=== PATIENT | female | born 1965 | race Caucasian/White ===

== ENCOUNTER 2023-08-09 14:59 | Outpatient (CLI) | payer OTHER | END 2023-08-09 15:00 | disposition critical access hospital (66) | LOC: EMS 14:59 | DX: R11.10 Vomiting, unspecified (principal); R19.5 Other fecal abnormalities; R53.1 Weakness | CPT/HCPCS: A0425; A0429 ==

== ENCOUNTER 2023-08-09 15:20 | Emergency (ER) | payer OTHER ==
--- NOTE | 2023-08-09 15:27 | ED Physician Documentation ---
History of Present Illness - Stated complaint Stated Complaint: VOMITING BLOOD - History obtained from History obtained from: Patient, EMS - Additonal information Additional information: 57-year-old woman who lives in [place] and is up here visiting, potentially preparing to move here. She has a history of liver disease and she does not know why. She says she was not really a drinker per se. As far she knows she is does not have varices and is never had GI bleeding. She does have significant ascites and for reasons unclear, "they did not refill my prescription, "she is not taking Lasix. The last 3 days she has had dark and ta rry stools and had some bloody emesis today. PD PAST MEDICAL HISTORY - Allergies Allergies/Adverse Reactions: Allergies Allergy/AdvReac Type Severity Reaction Status Date / Time No Known Drug Allergies Allergy Verified 08/09/23 15:47 PD ED PE NORMAL - Vitals Vital signs reviewed: Yes - General General: Alert and oriented X 3, Other (She appears ill with mild encephalopathy with delayed question answering.) - HEENT HEENT: PERRL, EOMI - Neck Neck: Supple, no meningeal sign, No bony TTP - Cardiac Cardiac: RRR, No murmur - Respiratory Respiratory: No respiratory distress - Abdomen Abdomen: Other (Profound ascites with abraded and fluid-filled umbilical hernia) - Back Back: No CVA TTP, No spinal TTP - Extremities Extremities: Other (weepy edematous legs with mult sores) - Neuro Neuro: Alert and oriented X 3 Eye Opening: To Voice Motor: Obeys Commands Verbal: Oriented GCS Score: 14 Results - Vitals Vitals: Vital Signs - 24 hr 08/09/23 08/09/23 08/09/23 15:32 15:51 16:00 Temperature Heart Rate 103 H 99 90 Respiratory 26 H 25 H 22 Rate Blood Pressure 90/55 L 79/58 L 52/32 L Blood Pressure [Left Brachial artery] O2 Saturation 100 100 100 08/09/23 08/09/23 08/09/23 16:02 16:06 16:09 Temperature Heart Rate 90 92 104 H Respiratory 20 16 Rate Blood Pressure 113/102 H 90/64 92/55 L Blood Pressure [Left Brachial artery] O2 Saturation 99 100 100 08/09/23 08/09/23 08/09/23 16:20 17:02 17:07 Temperature 36.5 C Heart Rate 96 94 Respiratory 21 16 16 Rate Blood Pressure 158/75 H 125/66 Blood Pressure 87/60 L [Left Brachial artery] O2 Saturation 94 100 95 08/09/23 17:44 Temperature Heart Rate 95 Respiratory 20 Rate Blood Pressure Blood Pressure [Left Brachial artery] O2 Saturation Oxygen O2 Source Mechanical ventilator - Labs Labs: Microbiology 08/09/23 15:35 Occult Blood - Final Stool Laboratory Tests 08/09/23 08/09/23 08/09/23 15:45 15:45 15:45 WBC 22.9 H RBC 2.43 L Hgb 6.2 L* Hct 22.0 L MCV 90.5 MCH 25.5 L MCHC 28.2 L RDW 20.0 H Plt Count 209 MPV 11.0 H Neut # (Auto) Not Reportable Lymph # (Auto) Not Reportable Ellsworth # (Auto) Not Reportable Eos # (Auto) Not Reportable Baso # (Auto) Not Reportable Absolute Nucleated RBC Not Reportable Total Counted 100 Band Neuts % (Manual) 4 Abnorm Lymph % (Manual) 0 Metamyelocytes % 2 H Nucleated RBC % Not Reportable Neutrophils # (Manual) 21.3 H Lymphocytes # (Manual) 0.9 L Monocytes # (Manual) 0.2 Eosinophils # (Manual) 0.0 Basophils # (Manual) 0.0 Nucleated RBCs 4 Differential Comment MANUAL DIFFERENTIAL WBC Morphology 1+ HYPERSEG NEUT Platelet Estimate NORMAL (130-450,000) Platelet Morphology NORMAL APPEARANCE RBC Morph Micro Appear 1+ HYPOCHROMASIA PT INR APTT Bld Gas Analysis Time Sample Site ABG pH ABG pCO2 ABG pO2 ABG HCO3 ABG Total CO2 ABG O2 Saturation ABG Base Excess Jevon Test Respiration Rate O2 Delivery Device Vent Mode FiO2 Tidal Volume PEEP Pressure Support Vent Sodium 139 Potassium 6.4 H* Chloride 110 Carbon Dioxide 14 L Anion Gap 15.0 H BUN 90 H* Creatinine 3.4 H Estimated GFR (MDRD) 14 L Glucose 202 H POC Whole Bld Glucose Lactic Acid Calcium 8.6 Phosphorus Magnesium 1.9 Total Bilirubin 0.7 AST 170 H ALT 66 H Alkaline Phosphatase 167 H Ammonia Troponin I High Sens Total Protein 5.9 L Albumin 2.2 L Globulin 3.7 Albumin/Globulin Ratio 0.6 L Ethyl Alcohol < 10.0 Blood Type Blood Type Recheck A POSITIVE Antibody Screen Crossmatch IS Only 08/09/23 08/09/2308/09/24 15:45 16:21 16:21 WBC RBC Hgb Hct MCV MCH MCHC RDW Plt Count MPV Neut # (Auto) Lymph # (Auto) Ellsworth # (Auto) Eos # (Auto) Baso # (Auto) Absolute Nucleated RBC Total Counted Band Neuts % (Manual) Abnorm Lymph % (Manual) Metamyelocytes % Nucleated RBC % Neutrophils # (Manual) Lymphocytes # (Manual) Monocytes # (Manual) Eosinophils # (Manual) Basophils # (Manual) Nucleated RBCs Differential Comment WBC Morphology Platelet Estimate Platelet Morphology RBC Morph Micro Appear PT 17.3 H INR 1.6 H APTT 32.9 Bld Gas Analysis Time Sample Site ABG pH ABG pCO2 ABG pO2 ABG HCO3 ABG Total CO2 ABG O2 Saturation ABG Base Excess Jevon Test Respiration Rate O2 Delivery Device Vent Mode FiO2 Tidal Volume PEEP Pressure Support Vent Sodium Potassium Chloride Carbon Dioxide Anion Gap BUN Creatinine Estimated GFR (MDRD) Glucose POC Whole Bld Glucose 215 H Lactic Acid Calcium Phosphorus Magnesium Total Bilirubin AST ALT Alkaline Phosphatase Ammonia 155.2 H* Troponin I High Sens Total Protein Albumin Globulin Albumin/Globulin Ratio Ethyl Alcohol Blood Type Blood Type Recheck Antibody Screen Crossmatch IS Only 08/09/23 08/09/23 08/09/23 16:21 16:21 17:16 WBC RBC Hgb Hct MCV MCH MCHC RDW Plt Count MPV Neut # (Auto) Lymph # (Auto) Ellsworth # (Auto) Eos # (Auto) Baso # (Auto) Absolute Nucleated RBC Total Counted Band Neuts % (Manual) Abnorm Lymph % (Manual) Metamyelocytes % Nucleated RBC % Neutrophils # (Manual) Lymphocytes # (Manual) Monocytes # (Manual) Eosinophils # (Manual) Basophils # (Manual) Nucleated RBCs Differential Comment WBC Morphology Platelet Estimate Platelet Morphology RBC Morph Micro Appear PT INR APTT Bld Gas Analysis Time Sample Site ABG pH ABG pCO2 ABG pO2 ABG HCO3 ABG Total CO2 ABG O2 Saturation ABG Base Excess Jevon Test Respiration Rate O2 Delivery Device Vent Mode FiO2 Tidal Volume PEEP Pressure Support Vent Sodium Potassium Chloride Carbon Dioxide Anion Gap BUN Creatinine Estimated GFR (MDRD) Glucose POC Whole Bld Glucose 199 H Lactic Acid Calcium Phosphorus Magnesium Total Bilirubin AST ALT Alkaline Phosphatase Ammonia Troponin I High Sens 490.2 H* Total Protein Albumin Globulin Albumin/Globulin Ratio Ethyl Alcohol Blood Type A POSITIVE Blood Type Recheck Antibody Screen NEGATIVE Crossmatch IS Only See Detail 08/09/23 08/09/23 08/09/23 17:20 17:49 17:49 WBC 15.2 H RBC 2.70 L Hgb 7.1 L Hct 24.7 L MCV 91.5 MCH 26.3 L MCHC 28.7 L RDW 17.6 H Plt Count 153 MPV 10.8 Neut # (Auto) Lymph # (Auto) Ellsworth # (Auto) Eos # (Auto) Baso # (Auto) Absolute Nucleated RBC Total Counted Band Neuts % (Manual) Abnorm Lymph % (Manual) Metamyelocytes % Nucleated RBC % Neutrophils # (Manual) Lymphocytes # (Manual) Monocytes # (Manual) Eosinophils # (Manual) Basophils # (Manual) Nucleated RBCs Differential Comment WBC Morphology Platelet Estimate Platelet Morphology RBC Morph Micro Appear PT INR APTT Bld Gas Analysis Time 1720 Sample Site LEFT RADIAL ABG pH 7.07 L* ABG pCO2 46 H ABG pO2 56 L ABG HCO3 13.1 L ABG Total CO2 14.6 L ABG O2 Saturation 79 L* ABG Base Excess -16.1 L Jevon Test POSITIVE Respiration Rate 16 O2 Delivery Device VENTILATOR Vent Mode SIMV FiO2 80.00 Tidal Volume 450 PEEP 5 Pressure Support Vent 12 Sodium Potassium Chloride Carbon Dioxide Anion Gap BUN Creatinine Estimated GFR (MDRD) Glucose POC Whole Bld Glucose Lactic Acid 7.8 H* Calcium Phosphorus Magnesium Total Bilirubin AST ALT Alkaline Phosphatase Ammonia Troponin I High Sens Total Protein Albumin Globulin Albumin/Globulin Ratio Ethyl Alcohol Blood Type Blood Type Recheck Antibody Screen Crossmatch IS Only 08/09/23 17:49 WBC RBC Hgb Hct MCV MCH MCHC RDW Plt Count MPV Neut # (Auto) Lymph # (Auto) Ellsworth # (Auto) Eos # (Auto) Baso # (Auto) Absolute Nucleated RBC Total Counted Band Neuts % (Manual) Abnorm Lymph % (Manual) Metamyelocytes % Nucleated RBC % Neutrophils # (Manual) Lymphocytes # (Manual) Monocytes # (Manual) Eosinophils # (Manual) Basophils # (Manual) Nucleated RBCs Differential Comment WBC Morphology Platelet Estimate Platelet Morphology RBC Morph Micro Appear PT INR APTT Bld Gas Analysis Time Sample Site ABG pH ABG pCO2 ABG pO2 ABG HCO3 ABG Total CO2 ABG O2 Saturation ABG Base Excess Jevon Test Respiration Rate O2 Delivery Device Vent Mode FiO2 Tidal Volume PEEP Pressure Support Vent Sodium 137 Potassium 5.6 H Chloride 111 Carbon Dioxide 15 L Anion Gap 11.0 BUN 92 H* Creatinine 3.3 H Estimated GFR (MDRD) 14 L Glucose 278 H POC Whole Bld Glucose Lactic Acid Calcium 8.9 Phosphorus 7.0 H Magnesium 1.7 Total Bilirubin AST ALT Alkaline Phosphatase Ammonia Troponin I High Sens Total Protein Albumin Globulin Albumin/Globulin Ratio Ethyl Alcohol Blood Type Blood Type Recheck Antibody Screen Crossmatch IS Only Procedures - General procedure General procedure: Arterial Line: Consent could not be obtained. The right wrist was prepped and draped in sterile fashion and using real-time sterile ultrasound guidance the right radial artery was accessed using a Seldinger wire a line with pulsatile return. Sutured into place. - Intubation - Major Provider: Emergency physician Medications: Ketamine (250mg IVP), Rocuronium (20mg IVP) Blade: Glidescope Tube: Size-enter number (7.5), Cuffed Route: Oral Confirmation: Direct visualization Complications: Other (She actively had melena, up through her esophagus during intubation which was suctioned out using a Yankauer. She did not seem to aspirate specifically.) - Central Line - Major Central Line Preparation: Unable to obtain consent, Time out completed, Ultrasound used, Sterile prep and drape Central line location: Right IJ Central line type: Triple lumen Central line aftercare: Secured, Placement confirmed, No pneumothorax, Bundle checklist complete, Pt tolerated well PD Medical Decision Making - ED course ED course: 57-year-old woman arrives critically ill and modestly encephalopathic with an apparent upper GI bleed. She has known cirrhosis and subsequently was able to find from the that she has a history of heart failure (he is does not know details or her EF). She does not know if she has varices. She was queried about CODE STATUS and she states she is full code and "wants everything done." While we were getting her settled she dipped down on her oxygen saturations and became agitated. It was clear that she would need intubation and she had to peripheral IVs and she was intubated by me and subsequently a right IJ central line was placed. During intubation it was clear that she had melena coming up from her esophagus which was suctioned out. She dropped her pressure more down to the 50/30 range and Levophed was begun as the central line was being placed. I called our surgeon, Dr. Brown and felt that she was too sick to be scoped at this facility but did go ahead and place a Hemant tube. I also placed a right radial art line and we activated the massive transfusion protocol. Subsequently initial results showed hemoglobin of 6, white count of 22, coags were not too bad, she has prerenal azotemia with hyperkalemia, very elevated ammonia and troponin and no alcohol on board. I also ordered Rocephin, octreotide bolus and drip, Protonix bolus and drip, and for treatment of the hyperkalemia, D50, insulin, albuterol, and calcium. I was hesitant to give her too much crystalloid given the history of heart failure and she certainly does seem fluid overloaded clinically. The health community relations liaison called around looking for a bed at a tertiary facility, [facility] could not take her due to volume issues and subsequently was accepted at approximately 4:[address] Masters, skiver heel tap at [facility]. arrived at the bedside, he is available at [phone]. Grave prognosis was portrayed and he is understanding. ABG 7.07/46/56. I suspect this is venous, the RT did not draw it off the A- line. That said even if venous this represents a metabolic acidosis and we can help correct and we will increase her respiratory rate from 16 up to 20. Rpt labs show improved Hgb p 2 unit PRBCs and 1 unit FFP and improved K. Transfer via [facility] to [facility] in improved but still very critical cond ition. - Critical Care Time(min): 95 Time Includes: Direct patient care, Review records, Reassess patient, Document care, Coordinate care, Medical consult, Family consult for tx dec Data interpretation: Labs, Pulse ox Procedures included in critical care time: Peripheral IV Procedures excluded from critical care time: Central IV, Arterial cannulation, Intubation, EKG Departure - Departure Disposition: 02 Transfer Acute Care Hosp Clinical Impression: Upper GI bleed, Hyperkalemia, Shock Cirrhosis Qualifiers: Hepatic cirrhosis type: unspecified hepatic cirrhosis Ascites presence: with ascites Qualified Code(s): K74.60 - Unspecified cirrhosis of liver; R18.8 - O ther ascites Renal failure Qualifiers: Renal failure chronicity: acute Acute renal failure type: unspecified Qualified Code(s): N17.9 - Acute kidney failure, unspecified Congestive heart failure Qualifiers: Heart failure type: unspecified Heart failure chronicity: unspecified Qualified Code(s): I50.9 - Heart failure, unspecified Respiratory failure Qualifiers: Chronicity: acute Respiratory failure complication: hypoxia Qualified Code(s): J96.01 - Acute respiratory failure with hypoxia Condition: Critical Forms: PCP List Discharge Date/Time: 08/09/23 18:30
[2023-08-09 15:50] LABS: BASOPHILS % (AUTO) 0.4 %; EOSINOPHILS % (AUTO) 0.1 %; LYMPHOCYTES % (AUTO) 7.1 %; MEAN CORPUSCULAR HEMOGLOBIN 25.5 pg (27.0-31.0); MEAN CORPUSCULAR HGB CONC 28.2 g/dL (32.0-36.0); MEAN CORPUSCULAR VOLUME 90.5 fL (81.0-99.0); MONOCYTES % (AUTO) 4.5 %; NEUTROPHILS % (AUTO) 81.6 %; PLT - PLATELET COUNT 209 10^3/uL (130-450); RED BLOOD COUNT 2.43 10^6/uL (4.20-5.40); WHITE BLOOD COUNT 22.9 x10^3/uL (4.8-10.8)
[2023-08-09] MEDS: KETAMINE 500 MG/10 ML VIAL IVP STA (15:51)
[2023-08-09] MEDS: ROCURONIUM 50 MG/5 ML VIAL IVP STA (15:53)
[2023-08-09 15:55] LABS: HGB - HEMOGLOBIN 6.2 g/dL (12.0-16.0)
[2023-08-09 15:57] LABS: ABNORMAL LYMPHS % (MANUAL) 0 %
[2023-08-09] MEDS ORDERED: NOREPINEPHRINE/0.9 % NS 8 MG/250 ML BAG IV ONE (15:58)
[2023-08-09 16:02] LABS: ETOH - ETHANOL < 10.0 mg/dL; MAGNESIUM 1.9 mg/dL (1.7-2.3)
[2023-08-09] MEDS: NOREPINEPHRINE/0.9 % NS 8 MG/250 ML BAG IV SCH (16:02)
[2023-08-09 16:06] LABS: ALBUMIN 2.2 g/dL (3.2-5.5); ALBUMIN/GLOBULIN RATIO 0.6 (1.0-2.2); ALKALINE PHOSPHATASE 167 IU/L (42-121); ALT ALANINE AMINOTRANSFERASE 66 IU/L (10-60); AST ASPARTATE AMINOTRANSFERASE 170 IU/L (10-42); BILIRUBIN,TOTAL 0.7 mg/dL (0.2-1.0); BUN - BLOOD UREA NITROGEN 90 mg/dL (6-20); CALCIUM 8.6 mg/dL (8.5-10.3); CARBON DIOXIDE - CO2 14 mmol/L (21-32); CHLORIDE 110 mmol/L (101-111); CREATININE 3.4 mg/dL (0.6-1.3); GFR - MDRD 14 (>89); GLUCOSE 202 mg/dL (74-104); POTASSIUM 6.4 mmol/L (3.5-4.5); SODIUM 139 mmol/L (135-145); TOTAL PROTEIN 5.9 g/dL (6.4-8.9)
[2023-08-09] MEDS: fentaNYL 2,500 MCG in SODIUM CHLORIDE 0.9% 200 ML IV STA (16:15)
[2023-08-09] MEDS ORDERED: PANTOPRAZOLE 80 MG in SODIUM CHLORIDE 0.9% 100ML 100 ML IV STA (16:17)
[2023-08-09] MEDS ORDERED: OCTREOTIDE 500 MCG in SODIUM CHLORIDE 0.9% 100ML 95 ML IV STA (16:17)
[2023-08-09 16:24] LABS: BAND NEUTROPHILS % (MANUAL) 4 %; LYMPHOCYTES # (MANUAL) 0.9 10^3/uL (1.5-3.5); LYMPHOCYTES % (MANUAL) 4 %; METAMYELOCYTES % (MANUAL) 2 %; MONOCYTES # (MANUAL) 0.2 10^3/uL (0.0-1.0); NEUTROPHILS # (MANUAL) 21.3 10^3/uL (1.5-6.6); NUCLEATED RBC (MANUAL) 4 %
--- NOTE | 2023-08-09 16:29 | XRAY Report ---
PROCEDURE: Chest for Line Placement INDICATIONS: intubation. central line TECHNIQUE: One view of the chest was acquired. COMPARISON: None. FINDINGS: Surgical changes and devices: Endotracheal tube is present approximately 2.3 cm superior to the zo na. Right-sided central venous catheter is present overlying the mid SVC.. Lungs and pleura: No pleural effusions or pneumothorax. Lungs are clear. Prominent elevated right hemidiaphragm. Mediastinum: Mediastinal contours appear normal. Heart size is enlarged. Bones and chest wall: No suspicious bony lesions. Overlying soft tissues appear unremarkable. IMPRESSION: Support lines as above. Reviewed by: Cheryle Suresh MD on 08/09/2023 4:27 PM PST Approved by: Cheryle Suresh MD on 08/09/2023 4:27 PM PST Station ID: [id number]
[2023-08-09 16:30] LABS: DIFFERENTIAL COMMENT MANUAL DIFFERENTIAL; PLATELET ESTIMATE, MANUAL NORMAL (130-450,000) (NORMAL); PLATELET MORPHOLOGY NORMAL APPEARANCE (NORMAL); WBC MORPHOLOGY (MULTIPLE) 1+ HYPERSEG NEUT (NORMAL)
[2023-08-09 16:34] LABS: PARTIAL THROMBOPLASTIN TIME 32.9 secs (24.9-33.3)
[2023-08-09 16:38] LABS: INR 1.6 (0.8-1.2); PT - PROTHROMBIN TIME 17.3 secs (9.9-12.6)
[2023-08-09] MEDS: PANTOPRAZOLE 80 MG in SODIUM CHLORIDE 0.9% 100ML 100 ML IV STA (17:10)
[2023-08-09] MEDS: OCTREOTIDE 500 MCG in SODIUM CHLORIDE 0.9% 100ML 99 ML IV STA (17:10)
--- NOTE | 2023-08-09 17:10 | CONSULTATION NOTE ---
Referring Provider Name of Referring Provider:: Dr. Luiz Currie Consult Date: 08/09/23 Chief Complaint - Chief Complaint Chief Complaint: Profound upper GI bleed with ascites and encephalopathy History of Present Illness - Admitted From Admitted From:: ED - History Obtained From Records Reviewed: Dr. Currie's note History obtained from: Dr. Currie's note Exam Limitations: Pt intubated/sedated - History of Present Illness HPI Comment/Other: Patient traveled up from [facility] here approximately 3 days ago. I did not get a chance to speak with the patient but in speaking with her and in reviewing Dr. Currie's notes the patient and the are unclear as to why she has cirrhosis of the liver. The states that the patient was not a candidate for liver transplant due to her congestive heart failure. The states that the patient has never been a drinker of alcohol. The states that her last for paracenteses going from earliest to latest warrant 9 L, 10 L, 9 L and most recently almost 11 L. In review of the patient's chart the patient has not been on Lasix or lactulose. I was called emergently to help with the treatment of her acute upper GI bleed. When I arrived in the emergency room in room 3 the patient was already intubated and a central line was being placed by Dr. Currie. Her labs returned a hemoglobin and a potassium level in the 6 range. Her ammonia level was 155. History - Past Medical History Cardiovascular: reports: Congestive heart failure Respiratory: reports: Shortness of breath GI: reports: Cirrhosis (Etiology unclear.), Other (Ascites requiring paracentesis) Meds/Allgy - Allergies Allergies/Adverse Reactions: Allergies Allergy/AdvReac Type Severity Reaction Status Date / Time No Known Drug Allergies Allergy Verified 08/09/23 15:47 Review of Systems - Other Findings Other Findings: Patient was intubated and sedated and I was obviously unable to get a review of systems. Exam - Vital Signs Reviewed Vital Signs: Yes Vital Signs: Vital Signs x48h Pulse Resp BP Pulse Ox 08/09/23 16:09 104 H 92/55 L 100 08/09/23 15:32 103 H 26 H 90/55 L 100 - Physical Exam General Appearance: positive: Other (Intubated, sedated.) Respiratory: positive: Other (Coarse breath sounds throughout with patient intubated.) Cardiovascular: positive: Tachycardia Abdomen: positive: Abnml bowel sounds, Other (Profoundly distended with ascites, necrosis of the skin at the umbilical hernia site.) Skin: positive: Other (Numerous ulcerations of the distal extremities, as noted above, necrosis at the umbilical hernia site of the superficial skin. Numerous abrasions of the skin throughout especially of the lower extremities. Thickness of the skin.) Neurologic/Psychiatric: positive: Other (Intubated, sedated.) Conclusion and Plan - Lab Results Microbiology Results 08/09/23 15:35 Stool Occult Blood - Final Laboratory Results 08/09/23 16:21: Troponin I High Sens 490.2 H* 08/09/23 16:21: Blood Type A POSITIVE, Antibody Screen NEGATIVE, Crossmatch IS Only See Detail 08/09/23 16:21: Ammonia 155.2 H* 08/09/23 16:21: PT 17.3 H, INR 1.6 H, APTT 32.9 08/09/23 15:45: Blood Type Recheck A POSITIVE 08/09/23 15:45: Sodium 139, Potassium 6.4 H*, Chloride 110, Carbon Dioxide 14 L, Anion Gap 15.0 H, BUN 90 H*, Creatinine 3.4 H, Estimated GFR (MDRD) 14 L, Glucose 202 H, Calcium 8.6, Magnesium 1.9, Total Bilirubin 0.7, AST 170 H, ALT 66 H, Alkaline Phosphatase 167 H, Total Protein 5.9 L, Albumin 2.2 L, Globulin 3.7, Albumin/Globulin Ratio 0.6 L, Ethyl Alcohol < 10.0 08/09/23 15:45: WBC 22.9 H, RBC 2.43 L, Hgb 6.2 L*, Hct 22.0 L, MCV 90.5, MCH 25.5 L, MCHC 28.2 L, RDW 20.0 H, Plt Count 209, MPV 11.0 H, Neut # (Auto) Not Reportable, Lymph # (Auto) Not Reportable, Bowman # (Auto) Not Reportable, Eos # (Auto) Not Reportable, Baso # (Auto) Not Reportable, Absolute Nucleated RBC Not Reportable, Total Counted 100, Band Neuts % (Manual) 4, Abnorm Lymph % (Manual) 0, Metamyelocytes % 2 H, Nucleated RBC % Not Reportable, Neutrophils # (Manual) 21.3 H, Lymphocytes # (Manual) 0.9 L, Monocytes # (Manual) 0.2, Eosinophils # (Manual) 0.0, Basophils # (Manual) 0.0, Nucleated RBCs 4, Differential Comment MANUAL DIFFERENTIAL, WBC Morphology 1+ HYPERSEG NEUT, Platelet Estimate NORMAL (130-450,000), Platelet Morphology NORMAL APPEARANCE, RBC Morph Micro Appear 1+ HYPOCHROMASIA - Diagnostic Imaging Results Diagnostic Imaging Results: positive: Prelim report reviewed - Diagnosis Diagnosis: End-stage liver disease with congestive heart failure now with acute upper GI bleed likely variceal in nature. - Plan Plan: I placed a Sengstaken Hemant tube to see whether or not I can temporize the bleeding. Emergency department does not have a sphygmomanometer in order to apply the appropriate amount of pressure on the esophageal balloon so I approximated the best I could. This will be reported separately. The patient's prognosis is extremely critical and it is highly highly unlikely that she will survive. The large volume of fluid in her abdomen will increase the pressure against the vena cava decreasing the blood return to the heart. This in turn will worsen her congestive heart failure. Additionally the cirrhosis is gotten to the point where she is clearly encephalopathic with the elevated ammonia level mentioned above. Additionally it is decreasing her ability to clot blood. Finally should transjugular intrahepatic portosystemic shunt to be considered this has been shown to worsen congestive heart failure. She has between a rock and a hard place. I spoke with her when he arrived regarding her poor prognosis. From a medical standpoint it would be appropriate for her to be DNR. I explained this to him as well. I wish to thank Dr. Currie very much for the opportunity to participate in this patient's extremely complex care. CPT 53281
[2023-08-09] MEDS: DEXTROSE 50% ABBOJECT 25 GM/50 ML SYRINGE IVP STA (17:18)
[2023-08-09] MEDS: INSULIN REGULAR HUMAN 300 UNIT/3 ML VIAL IVP STA (17:22)
[2023-08-09] MEDS: CALCIUM CHLORIDE ABBOJECT 1000MG/10 ML SYRINGE IVP STA (17:24)
[2023-08-09 17:30] LABS: ABG BASE EXCESS -16.1 mmol/L (-2.0-3.0); ABG HCO3 13.1 mmol/L (22.0-26.0); ABG PCO2 46 mmHg (34-45); ABG PO2 56 mmHg (80-100); ABG TCO2 14.6 MMOL/L (21.0-29.0); ALLEN TEST POSITIVE
[2023-08-09 17:31] LABS: ABG MODE OF VENTILATION SIMV; ABG RESPIRATORY RATE 16 b/min
[2023-08-09 17:32] LABS: ABG PH 7.07 (7.35-7.45)
[2023-08-09 17:33] LABS: ABG OXYGEN SATURATION 79 % (94-98)
[2023-08-09] MEDS: PANTOPRAZOLE 40 MG VIAL IVP STA (17:33)
[2023-08-09] MEDS: cefTRIAXone 1 GM VIAL IVP STA (17:33)
[2023-08-09] MEDS: ALBUTEROL NEB 2.5 MG/3 ML INH STA (17:36)
--- NOTE | 2023-08-09 17:37 | XRAY Report ---
PROCEDURE: Chest for Line Placement INDICATIONS: SBT MERCURY MEASUREMENT, FOR MD TO VERIFY PLACEMENT TECHNIQUE: One view of the chest was acquired. COMPARISON: None. FINDINGS: Surgical changes and devices: A catheter is seen placed in the esophagus and stomach lumen with the tip in right upper quadrant in the expected location of the duodenum. Right-sided central venous cath eter tip is in SVC.. Lungs and pleura: No pleural effusions or pneumothorax. Elevation of right hemidiaphragm is again se en. No definite focal infiltrate. Mediastinum: Mediastinal contours appear normal. Heart size is normal. Bones and chest wall: No suspicious bony lesions. Overlying soft tissues appear unremarkable. IMPRESSION: A catheter is seen projecting in the region of esophagus and stomach lumen with the tip in the region of duodenum. Right-sided central venous catheter tip is in SVC. No definite focal infiltrate. No pleural effusion or gross pneumothorax. Reviewed by: Jose L Elena MD on 08/09/2023 5:36 PM PST Approved by: Jose L Elena MD on 08/09/2023 5:36 PM PST Station ID: [id number]
--- NOTE | 2023-08-09 17:47 | PROCEDURE REPORT ---
Hospitalist Procedure Note - Procedure Note Procedure Note: Informed consent cannot be obtained due to the patient's clinical status. After obtaining a Sengstaken Hemant tube it the balloons were completely deflated and it was copiously lubricated with water-soluble lubricant. The patient had already been intubated. The Sengstaken Hemant tube was placed to the patient's nose down into the esophagus until no more of the tube could be inserted. There was return of dark blood from the gastric drainage port. The gastric balloon was insufflated with 50 mL of air. A x-ray was taken to confirm placement of the balloon in the stomach. The x-ray was read to show the balloon in good placement in the stomach. The gastric balloon was then inflated to a total of 250 mL of air and a repeat x-ray showed good placement of the balloon into the stomach. The Sengstaken Hemant tube was then slowly withdrawn to seat the gastric balloon up against the upper portion of the stomach and the esophageal balloon was inflated with 125 mL of air. This was the best I could do as the emergency department lacked a sphygmomanometer in order to measure the pressures in the esophageal balloon. Because I did not have the sphygmomanometer or the helmet to hold the Sengstaken Hemant tube in place I used a repeat x-ray to show in full flexion of the esophageal balloon without overinflation. The patient was in extremis and this placement was an attempt to save her life. CPT 06548
[2023-08-09 17:54] LABS: HCT - HEMATOCRIT 24.7 % (37.0-47.0); HGB - HEMOGLOBIN 7.1 g/dL (12.0-16.0); MEAN CORPUSCULAR HEMOGLOBIN 26.3 pg (27.0-31.0); MEAN CORPUSCULAR HGB CONC 28.7 g/dL (32.0-36.0); MEAN CORPUSCULAR VOLUME 91.5 fL (81.0-99.0); MEAN PLATELET VOLUME 10.8 fL (7.9-10.8); RED BLOOD COUNT 2.7 10^6/uL (4.20-5.40); RED CELL DISTRIBUTION WIDTH 17.6 % (12.0-15.0); WHITE BLOOD COUNT 15.2 x10^3/uL (4.8-10.8)
[2023-08-09 18:09] LABS: MAGNESIUM 1.7 mg/dL (1.7-2.3)
[2023-08-09 18:10] LABS: CALCIUM 8.9 mg/dL (8.5-10.3); CREATININE 3.3 mg/dL (0.6-1.3); POTASSIUM 5.6 mmol/L (3.5-4.5)
[2023-08-09] MEDS: OCTREOTIDE 100 MCG/ML VIAL IVP STA (18:28)
[2023-08-09 19:18] VITALS: BP 125/66; O2SAT 95
== END 2023-08-09 18:30 | disposition short-term general hospital (02) ==
LOC: ED 15:20
DX: K92.2 Gastrointestinal hemorrhage, unspecified (principal); K74.60 Unspecified cirrhosis of liver; R18.8 Other ascites; N17.9 Acute kidney failure, unspecified; I50.9 Heart failure, unspecified; J96.01 Acute respiratory failure with hypoxia; E87.5 Hyperkalemia; R57.9 Shock, unspecified; G93.40 Encephalopathy, unspecified; K72.10 Chronic hepatic failure without coma
CPT/HCPCS: 31500; 36415; 36430; 36556; 36600; 36620; 43460; 80048; 80053; 82077; 82140; 82272; 82803; 83605; 83735; 84100; 84484; 85025; 85027; 85610; 85730; 86850; 86900; 86901; 86920; 94002; 94640; 96365; 96366; 96375; 99291; 99292; J1815; J2354; J3010; P9016; P9017